=== PATIENT | male | born 1985 | race Caucasian/White ===

== ENCOUNTER 2020-11-05 23:08 | Inpatient (IN) | payer OTHER ==
[~2020-11-05] VITALS: Ht 175.3 cm; Wt 98.0 kg
[2020-11-05 23:46] LABS: BASOPHILS ABSOLUTE AUTO 0.07 K/mm3 (0.00-0.23); BASOPHILS PERCENT AUTO 1 % (0-2); EOSINOPHILS ABSOLUTE AUTO 0.08 K/mm3 (0.00-0.68); EOSINOPHILS PERCENT AUTO 1 % (0-6); Hematocrit 50.8 % (37.0-53.0); Hemoglobin 18.2 g/dL (13.5-17.5); IMMATURE GRAN ABSOLUTE AUTO 0.04 K/mm3 (0.00-0.10); IMMATURE GRAN PERCENT AUTO 0 % (0-1); LYMPHOCYTES ABSOLUTE AUTO 1.82 K/mm3 (0.84-5.20); LYMPHOCYTES PERCENT AUTO 16 % (21-46); MONOCYTES ABSOLUTE AUTO 1.09 K/mm3 (0.16-1.47); MONOCYTES PERCENT AUTO 10 % (4-13); Mean Corpuscular HGB 29.6 pg (26.0-34.0); Mean Corpuscular HGB Conc 35.8 g/dL (31.5-36.5); Mean Corpuscular Volume 83 fL (80-100); Mean Platelet Volume 9.2 fL (9.1-12.4); NEUTROPHILS ABSOLUTE AUTO 8.28 K/mm3 (1.96-9.15); NEUTROPHILS PERCENT AUTO 73 % (41-73); Platelet Count 153 K/mm3 (150-400); RDW Coefficient Variation 15.8 % (11.7-14.2); RDW Standard Deviation 46.3 fL (35.1-46.3); Red Blood Cell Count 6.15 M/mm3 (4.30-5.90); White Blood Cell Count 11.38 K/mm3 (4.00-11.30)
[2020-11-06 02:24] LABS: Ethanol (Alcohol), Blood, Med <3 mg/dL; Troponin I <0.015 ng/mL (0.000-0.040)
[2020-11-06 02:32] LABS: Alanine Aminotransfer (ALT/SGP 128 U/L (12-78); Alk Phos 62 U/L (50-136); Anion Gap 10 mmol/L (6-16); Aspartate Aminotrans (AST/SGOT 82 U/L (12-37); Bilirubin, Total 1.2 mg/dL (0.1-1.0); Blood Urea Nitrogen 13 mg/dL (8-24); Bun/Creatinine Ratio 18.5 (12.0-20.0); CO2, Blood 23 mmol/L (21-32); Calcium, Blood 9.4 mg/dL (8.5-10.1); Chloride, Blood 104 mmol/L (98-108); Cholesterol 157 mg/dL (50-200); Globulin, Blood 3.9 g/dL (2.2-4.0); Glomerular Filtration Rate >60 (60-); Glucose, Blood 167 mg/dL (70-99); Potassium, Blood 4.7 mmol/L (3.5-5.5); Sodium, Blood 137 mmol/L (136-145); Total Protein, Blood 7.9 g/dL (6.4-8.2)
[2020-11-06 02:33] LABS: Triglycerides 1813 mg/dL (30-140)
[2020-11-06] MEDS ORDERED: JARDIANCE10 MG PO (02:40)
[2020-11-06] MEDS ORDERED: METF500 PO (02:42)
[2020-11-06] MEDS ORDERED: LISI5 PO (02:42)
[2020-11-06] MEDS ORDERED: THERA-D2000 UNIT PO (02:42)
[2020-11-06] MEDS ORDERED: OMEP20ER PO (04:50)
--- NOTE | 2020-11-06 05:44 | NUR ---
ARRIVAL TO ICU/ASSUMED CARE/END OF SHIFT PT ARRIVED TO ICU 1 AT 0400 VIA ED BED. PT ABLE TO TRANSFER TO ICU BED WITH MINIMAL ASSISTANCE. NS BOLUS FINISHING INFUSING WHEN ARRIVED TO UNIT. PT IS ALERT/ORIENTED AND ABLE TO MAKE NEEDS KNOW. ABD PAIN MANAGABLE BUT PRN FENTANYL GIVEN AT 0515 DUE TO PAIN LEVEL INCREASING TO 6/10, PRN HELPFUL WITH CURRENT PAIN LEVEL BEING 3/10. SPO2 >95% ON RA. HR 100-110. BP STABLE. AFIBRILE. ABD TENDER TO TOUCH BUT PT STATES IMPROVED FROM PREVIOUS PAIN. INSULIN GTT AND D5 1/2NS STARTED; SEE FLOWSHEET FOR INSULIN TITRATION. SEE ADMISSION ASSESSMENT FOR FULL ASSESSMENT. WILL REPORT TO AM RN WHEN AVAILABLE.
--- NOTE | 2020-11-06 07:14 | NUR ---
CALLED HOSPITALIST NOTIFIED DR THAT INSULIN WAS INFUSING AT 0.5UNITS/HR DUE TO GLUCOSE DECREASING TO 147. NEW ORDERS PROVIDED TO INFUSE DEXTROSE 10%. WAITING FOR ARRIVAL OF GTT FROM PHARMACY, AM RN NOTIFIED OF CHANGE.
--- NOTE | 2020-11-06 08:30 | NUR ---
ASSUMED CARE OF PT AT SHIFT CHANGE. PT RESTING IN BED, C/O OF SLIGHT ABD PAIN, WORSENS WITH MOVEMENT. INSULIN GTT INFUSING, DEXTROSE INFUSION CHANGED TO D10 TO MAINTAIN BLOOD SUGARS. VITALS STABLE. SINUS TACH ON THE MONITOR. PT ABLE TO INDEPENDANTLY AMBULATE TO TOILET AND UTILIZE URINAL.
[2020-11-06 13:49] LABS: BASOPHILS ABSOLUTE AUTO 0.03 K/mm3 (0.00-0.23); BASOPHILS PERCENT AUTO 0 % (0-2); EOSINOPHILS ABSOLUTE AUTO 0.07 K/mm3 (0.00-0.68); EOSINOPHILS PERCENT AUTO 1 % (0-6); Hematocrit 44.3 % (37.0-53.0); Hemoglobin 15.2 g/dL (13.5-17.5); IMMATURE GRAN ABSOLUTE AUTO 0.03 K/mm3 (0.00-0.10); IMMATURE GRAN PERCENT AUTO 0 % (0-1); LYMPHOCYTES ABSOLUTE AUTO 1.02 K/mm3 (0.84-5.20); LYMPHOCYTES PERCENT AUTO 12 % (21-46); MONOCYTES ABSOLUTE AUTO 1.04 K/mm3 (0.16-1.47); MONOCYTES PERCENT AUTO 12 % (4-13); Mean Corpuscular HGB 28.7 pg (26.0-34.0); Mean Corpuscular HGB Conc 34.3 g/dL (31.5-36.5); Mean Corpuscular Volume 84 fL (80-100); Mean Platelet Volume 9.4 fL (9.1-12.4); NEUTROPHILS PERCENT AUTO 75 % (41-73); Platelet Count 110 K/mm3 (150-400); RDW Coefficient Variation 15.5 % (11.7-14.2); Red Blood Cell Count 5.29 M/mm3 (4.30-5.90); White Blood Cell Count 8.89 K/mm3 (4.00-11.30)
[2020-11-06 14:21] LABS: Alanine Aminotransfer (ALT/SGP 112 U/L (12-78); Albumin, Blood 3.5 g/dL (3.4-5.0); Alk Phos 57 U/L (50-136); Anion Gap 5 mmol/L (6-16); Aspartate Aminotrans (AST/SGOT 59 U/L (12-37); Bilirubin, Total 1.7 mg/dL (0.1-1.0); Blood Urea Nitrogen 8 mg/dL (8-24); CO2, Blood 29 mmol/L (21-32); Calcium, Blood 7.9 mg/dL (8.5-10.1); Chloride, Blood 102 mmol/L (98-108); Creatinine, Blood 0.67 mg/dL (0.60-1.20); Globulin, Blood 3.6 g/dL (2.2-4.0); Glomerular Filtration Rate >60 (60-); Glucose, Blood 174 mg/dL (70-99); Sodium, Blood 136 mmol/L (136-145); Total Protein, Blood 7.1 g/dL (6.4-8.2)
[2020-11-06 14:45] LABS: Triglycerides 1045 mg/dL (30-140)
[2020-11-06 17:23] LABS: Triglycerides 879 mg/dL (30-140)
--- NOTE | 2020-11-06 18:22 | NUR ---
SHIFT SUMMARY PT IS ALERT AND ORIENTEDx4. INSULIN DRIP WITH D10 INFUSION GOING MOST OF DAY. EVENING TRIGLYCERIDES SHOWED IMPROVEMENT AND DR ISTRATE ORDERED TO STOP INSULIN GTT AND CHECK LABS IN AM. PT STATUS CHANGED TO MEDICAL WITH TELEMETERY. VITALS HAVE BEEN STABLE TODAY. PRIOR TO REMOVAL OF HEART MONITOR PT WAS SINUS RHYTHM/TACH WITH RATES 90'S-100'S. PT C/O ABD PAIN, WITH IMPROVEMENT IN PAIN LEVEL THIS EVENING. PT IS TOLERATING CLEAR LIQUID DIET.
--- NOTE | 2020-11-06 21:36 | NUR ---
ASSUMED CARE PT IS A/O. MEDICAL NO TELEMETRY STATUS. INDEP TO BATHROOM. PATIENT REPORTS PAIN IN ABDOMEN. PT SATS ARE ABOVE 95% ON ROOM AIR. VITAL SIGNS ARE STABLE. LUNGS CLEAR. WILL CONTINUE TO MONITOR THROUGHT SHIFT.
--- NOTE | 2020-11-06 22:52 | NUR ---
REPORT CALLED TO MEDICAL RN CASSANDRA Jose FOR ROOM ICU01 TO RM [id number]; NO QUESTIONS OR CONCERNS. PT TRANSPORTED VIA W/C WITH ALL BELONGINGS.
[2020-11-07 05:04] LABS: BASOPHILS ABSOLUTE AUTO 0.03 K/mm3 (0.00-0.23); BASOPHILS PERCENT AUTO 0 % (0-2); EOSINOPHILS ABSOLUTE AUTO 0.13 K/mm3 (0.00-0.68); EOSINOPHILS PERCENT AUTO 1 % (0-6); Hematocrit 42.9 % (37.0-53.0); Hemoglobin 14.3 g/dL (13.5-17.5); IMMATURE GRAN ABSOLUTE AUTO 0.03 K/mm3 (0.00-0.10); IMMATURE GRAN PERCENT AUTO 0 % (0-1); LYMPHOCYTES ABSOLUTE AUTO 1.15 K/mm3 (0.84-5.20); LYMPHOCYTES PERCENT AUTO 11 % (21-46); MONOCYTES ABSOLUTE AUTO 1.26 K/mm3 (0.16-1.47); MONOCYTES PERCENT AUTO 12 % (4-13); Mean Corpuscular HGB 27.8 pg (26.0-34.0); Mean Corpuscular HGB Conc 33.3 g/dL (31.5-36.5); Mean Corpuscular Volume 84 fL (80-100); Mean Platelet Volume 8.6 fL (9.1-12.4); NEUTROPHILS ABSOLUTE AUTO 7.56 K/mm3 (1.96-9.15); NEUTROPHILS PERCENT AUTO 74 % (41-73); Platelet Count 93 K/mm3 (150-400); RDW Coefficient Variation 15.5 % (11.7-14.2); RDW Standard Deviation 47.4 fL (35.1-46.3); Red Blood Cell Count 5.14 M/mm3 (4.30-5.90); White Blood Cell Count 10.16 K/mm3 (4.00-11.30)
--- NOTE | 2020-11-07 05:17 | NUR ---
TAX AUDITOR SUMMARY PT TRANSFERED FROM THE ICU TONIGHT. PT AAOX4 AND INDEPENDENT IN ROOM. DENIES NAUSEA BUT DID COMPLAIN OF SOME ABD PAIN MAINLY WITH MOVEMENT. MEDICATED WITH FENTANYL 50 MCG X1 WHICH TOOK PAIN DOWN TO A 0/10. PT HAS SLEPT MOST OF THE NIGHT SINCE ARRIVING TO THE MED FLOOR. VSS, WILL CONTINUE TO MONITOR.
[2020-11-07 05:32] LABS: Alanine Aminotransfer (ALT/SGP 79 U/L (12-78); Albumin, Blood 3.5 g/dL (3.4-5.0); Albumin/Globulin Ratio 0.9 (0.8-1.8); Alk Phos 57 U/L (50-136); Amylase, Blood 26 U/L (25-115); Anion Gap 7 mmol/L (6-16); Aspartate Aminotrans (AST/SGOT 28 U/L (12-37); Blood Urea Nitrogen 8 mg/dL (8-24); Bun/Creatinine Ratio 12.1 (12.0-20.0); CO2, Blood 26 mmol/L (21-32); Calcium, Blood 8.4 mg/dL (8.5-10.1); Chloride, Blood 103 mmol/L (98-108); Creatinine, Blood 0.66 mg/dL (0.60-1.20); Globulin, Blood 3.8 g/dL (2.2-4.0); Glomerular Filtration Rate >60 (60-); Glucose, Blood 151 mg/dL (70-99); Magnesium, Blood 2.1 mg/dL (1.6-2.4); Phosphorus, Blood 3.1 mg/dL (2.5-4.9); Potassium, Blood 3.8 mmol/L (3.5-5.5); Sodium, Blood 136 mmol/L (136-145); Thyroid Stimulating Hormone 0.338 uIU/mL (0.360-4.800); Total Protein, Blood 7.3 g/dL (6.4-8.2); Triglycerides 531 mg/dL (30-140)
[2020-11-07] MEDS ORDERED: ONDA4ODT SL (11:50)
[2020-11-07] MEDS ORDERED: OXYC5 PO (11:51)
[2020-11-07] MEDS ORDERED: FENO48 PO (11:53)
--- NOTE | 2020-11-07 12:05 | NUR ---
PATIENT D/C'D TO HOME WITH FAMILY. RX MEDICATIONS FAXED TO [facility]. HARD SCRIPT FOR OXYCODONE GIVEN TO PATIENT. DC INSTRUCTIONS AND EDUCATION DISCUSSED WITH PATIENT AND COPY PROVIDED. PATIENT DENIES DENIES ANY FURTHER QUESTIONS OR CONCERNS.
== END 2020-11-07 12:11 | disposition home or self-care (01) | DRG 440 ==
LOC: ER 23:08 → ICUW 11-06 04:15 → ICUE 11-06 04:15 → MEDS 11-06 23:17
PROVIDERS: Family Medicine; Physician Assistant; ADMIT Internal Medicine
DX: K85.90 Acute pancreatitis without necrosis or infection, unspecified (principal); E11.69 Type 2 diabetes mellitus with other specified complication; E66.9 Obesity, unspecified; I10 Essential (primary) hypertension; E78.1 Pure hyperglyceridemia; Z79.84 Long term (current) use of oral hypoglycemic drugs; Z87.891 Personal history of nicotine dependence; Z68.31 Body mass index [BMI] 31.0-31.9, adult
CPT/HCPCS: 36415; 74176; 80053; 82150; 82465; 82947; 83605; 83690; 83735; 84100; 84443; 84478; 84484; 85025; 93005; 93010; 96361; 96374; 99285-25; A9270; G0480; J1650; J1815; J2270; J3010; J7030; J7042